=== PATIENT | female | born 2000 ===

== ENCOUNTER → 2021-03-19 08:39 | Outpatient (CLI) | payer OTHER, MEDICAID, SELFPAY ==
[2021-03-19 09:10] LABS: Ur Creatinine Normal (Normal); Ur Specific Gravity Normal (Normal); Urine pH Normal (Normal)
[2021-03-19 09:11] LABS: UR Morphine/Opiate cutoff 300 Negative (Negative); Urine Amphetamines Negative (Negative); Urine Barbiturates Negative (Negative); Urine Benzodiazepines Negative (Negative); Urine Cocaine Negative (Negative); Urine MDMA Negative (Negative); Urine Methadone Negative (Negative); Urine Methamphetamines Negative (Negative); Urine Oxycodone Negative (Negative); Urine Phencyclidine Negative (Negative); Urine Tetrahydrocannabinol Negative (Negative); Urine Tricyclic Antidepressant Negative (Negative)
== END ==
PROVIDERS: Visit Provider Family Medicine Sleep Medicine
DX: G47.00 Insomnia, unspecified (principal); G47.19 Other hypersomnia
CPT/HCPCS: 80305; 95805

== ENCOUNTER 2023-08-13 20:21 | Emergency (ER) | payer OTHER, SELFPAY ==
[2023-08-13 20:37] VITALS: BP 131/73; PULSE 85; RESP 20; TEMP 36.5; O2SAT 100
--- NOTE | 2023-08-13 20:48 | ED_ITS ---
HPI - General Adult General Chief complaint: Shortness of Breath/Dyspnea Stated complaint: rupert lan on 07/22 Time Seen by Provider: 08/13/23 20:38 Source: patient Mode of arrival: Ambulatory History of Present Illness HPI narrative: 23-year-old female. About 3 weeks ago patient underwent a laparoscopic cholecystectomy. Prior to that she underwent a laparoscopic ovarian cyst removal. During the 2 surgeries she also had 2 airplane rides. She is here for evaluation of shortness of breath that has been going on for the past couple days. No fevers. No chest pain. No cough. No sore throat. Her abdominal pain is actually improving. She is never had a blood clot in the past. No lower extremity swelling. She states she just feels like she can not take a deep breath. Related Data Home Medications Medication Instructions Recorded Confirmed dextroamphetamine-amphetamine 10 10 mg PO DAILY PRN 01/19/21 01/19/21 mg tablet (Adderall) fluoxetine 10 mg capsule 10 mg PO DAILY 01/19/21 01/19/21 norgestimate 0.18 mg/0.215 mg/0.25 1 tab PO DAILY 01/19/21 01/19/21 mg-ethinyl estradiol 25 mcg tablet ([id number]) Previous Rx's Medication Instructions Recorded armodafinil 150 mg tablet 150 mg PO QAM narcolepsy #30 tabs 12/14/21 Allergies Allergy/AdvReac Type Severity Reaction Status Date / Time No Known Drug Allergies Allergy Unverified 01/19/21 13:07 Review of Systems Constitutional Constitutional: Reports system reviewed and no additional complaints, except as documented ENT Ears, Nose, Mouth, and Throat: Reports system reviewed and no additional complaints, except as documented Cardiovascular Cardiovascular: Reports system reviewed and no additional complaints, except as documented Respiratory Respiratory: Reports system reviewed and no additional complaints, except as documented Integumentary/Breasts Skin/Breast: Reports system reviewed and no additional complaints, except as documented Hematologic/Lymphatic On Anticoagulants: No Patient History Family History Family/Other Loud snoring Obesity Hypertension Diabetes mellitus Dementia Father Loud snoring Sleep apnea Hypertension Diabetes mellitus ADD (attention deficit disorder) Mother Depression Anxiety ADD (attention deficit disorder) Family/Other Anxiety Depression Social History (Reviewed 11/04/23 @ 22:44 by CHARLES Pineda Smoking Status: Never smoker Smoking Status: Never smoker alcohol intake frequency: 0-2 drinks per day Substance Use Type: does not use Exam Initial Vital Signs Initial Vital Signs: Vital Signs Temperature 97.7 F 08/13/23 20:37 Pulse Rate 85 08/13/23 20:37 Respiratory Rate 20 08/13/23 20:37 Blood Pressure 131/73 08/13/23 20:37 Pulse Oximetry 100 08/13/23 20:37 Oxygen Delivery Method Room Air 08/13/23 20:37 Const General: cooperative and comfortable Resp Effort & Inspection: normal respiratory effort Auscultation: clear to auscultation bilaterally Cardio Rate: regular rate Rhythm: regular rhythm GI Inspection: normal to inspection and non-distended Skin General: no rashes or lesions noted Neuro General: patient alert, patient awake and moves all extremities Speech: speech normal Extrem General: capillary refill normal Scores PERC Score Age greater than or equal to 50 years: No Heart rate greater than or equal to 100 bpm: No Room Air O2 Sat less than 95%: No Unilateral leg swelling: No Recent trauma or surgery: Yes Hemoptysis: No Prior PE or DVT: No Hormone Use: Yes Total PERC Score: 2 Course Orders Ordered: ED Orders 08/13/23 20:49 XR chest 1V Stat EKG-12 Lead Stat 08/13/23 21:09 Complete Blood Count AUTO DIFF Stat Comprehensive Metabolic Panel Stat D Dimer Stat Lipase Stat Test Serum,Qual Stat 08/13/23 22:20 COVID19 -Nasal RAPID Stat Vital Signs Vital signs: Vital Signs - 8 hr 08/13/23 20:37 08/13/23 21:11 08/13/23 21:30 Temperature 97.7 F Pulse Rate 85 78 Respiratory Rate 20 20 Blood Pressure 131/73 111/69 Pulse Oximetry 100 100 Oxygen Delivery Method Room Air 08/13/23 21:30 08/13/23 22:00 08/13/23 22:00 Temperature Pulse Rate 80 85 Respiratory Rate 20 23 Blood Pressure 115/64 Pulse Oximetry 98 99 Oxygen Delivery Method Room Air Medical Decision Making Lab Data Lab results reviewed: Yes I reviewed the patient's lab results. 08/13/23 21:09 08/13/23 21:09 Labs: Lab Results 08/13/23 08/13/23 Range/Units 21:09 22:20 WBC 5.6 (4.5-11.0) X10^3/uL RBC 4.08 (4.0-5.2) X10^6/uL Hgb 12.6 (12.0-16.0) g/dL Hct 35.8 L (36-46) % MCV 87.8 (80-100) fL MCH 30.9 (26-34) PG MCHC 35.2 (30-36) % RDW 13.6 (11.6-14.8) % Plt Count 237 (150-400) X10^3/uL Neut % (Auto) 44.9 L (50-75) % Lymph % (Auto) 44.7 H (25-40) % Wilcox % (Auto) 6.3 (3-14) % Eos % (Auto) 3.2 (2-4) % Baso % (Auto) 0.9 (0-2) % Neut # (Auto) 2500 (5247-0792) /uL Lymph # (Auto) 2500 (3802-7822) /uL Wilcox # (Auto) 400 (0-900) /uL Eos # (Auto) 200 (0-450) /uL Baso # (Auto) 0 (0-100) /uL D-Dimer < 215 (<500) ng/ml Sodium 137 (137-145) mmol/L Potassium 3.7 (3.4-5.1) mmol/L Chloride 102 (98-107) mmol/L Carbon Dioxide 30 (22-32) mmol/L BUN 16 (7-17) mg/dL Creatinine 0.71 (0.52-1.04) mg/dL Estimated GFR > 60 (>60) mL/min BUN/Creatinine Ratio 22.5 H (6-22) Glucose 83 (70-100) mg/dL Calcium 9.5 (8.4-10.2) mg/dL Total Bilirubin 0.1 L (0.2-1.3) mg/dL AST 31 (14-36) IU/L ALT 44 H (<35) IU/L Alkaline Phosphatase 45 (38-126) U/L Total Protein 7.1 (6.3-8.2) g/dL Albumin 4.3 (3.5-5.0) g/dL Globulin 2.8 (1.7-4.1) g/dL Albumin/Globulin Ratio 1.5 (1.0-2.8) Lipase 428 H (23-300) U/L Serum , Qual Negative (Negative) SARS-CoV-2 (PCR) Negative (Negative) Imaging Data Chest x-ray: Radiologist's Impression: PROCEDURE: XR CHEST 1V INDICATIONS: sob s/p surgery TECHNIQUE: One view of the chest was acquired. COMPARISON: None. FINDINGS: Surgical changes and devices: None. Lungs and pleura: Lungs are clear. No pleural effusions or pneumothorax. Mediastinum: Mediastinal contours appear normal. Heart size is normal. Bones and chest wall: No suspicious bony lesions. Overlying soft tissues appear unremarkable. IMPRESSION: Normal for age, source of current shortness of breath symptoms is not seen. ECG Data Attestation: I personally reviewed and interpreted this ECG as follows: Interpretation: Sinus rhythm Ventricular rate is 79 Normal axis Normal QRS Normal QTC Nonspecific ST T wave changes MDM Narrative Medical decision making narrative: Patient has had a couple days of symptoms. No chest pain. EKGs unremarkable. PERC positive but D-dimer negative. Chest x-ray shows no signs of pneumonia. No lower extremity swelling. Patient is not hypoxic. COVID is negative. Not tachypneic. Unsure the exact etiology of the patient's symptoms but I do feel that we should hold on any CT scan for now given her blood work. No indication for antibiotics. Could be a viral illness that we did not test for today or related to her recent laparoscopic procedure. We did discuss strict return precautions. Discussed follow-up instructions. She expressed understanding and agreement. Discharge Plan Departure Patient Disposition: Home Clinical Impression: Shortness of breath Instructions: DI for Shortness of Breath Activity Restrictions/Additional Instructions: Recommend you continue to take all of your medications as directed. If you start to develop new symptoms to include chest pain, worsening shortness of breath, fevers or lower extremity swelling please return to the emergency department. Contact your primary doctor for a follow-up. Prescriptions: No Action armodafinil 150 mg tablet 150 mg PO QAM Qty: 30 0RF fluoxetine 10 mg capsule 10 mg PO DAILY norgestimate-ethinyl estradiol [Dqr-Pc-Ppqtow] 0.18/0.215/0.25 mg-25 mcg tablet 1 tab PO DAILY dextroamphetamine-amphetamine [Adderall] 10 mg tablet 10 mg PO DAILY PRN Referrals: Deborah Ross MD [Primary Care Provider] - Stand Alone Forms: Patient Portal/API
--- NOTE | 2023-08-13 20:49 | DI.RAD.S_ITS ---
PROCEDURE: XR CHEST 1V INDICATIONS: sob s/p surgery TECHNIQUE: One view of the chest was acquired. COMPARISON: None. FINDINGS: Surgical changes and devices: None. Lungs and pleura: Lungs are clear. No pleural effusions or pneumothorax. Mediastinum: Mediastinal contours appear normal. Heart size is normal. Bones and chest wall: No suspicious bony lesions. Overlying soft tissues appear unremarkable. IMPRESSION: Normal for age, source of current shortness of breath symptoms is not seen. Dictated by: Tom Ortiz M.D. on 08/13/2023 at 21:09 Approved by: Tom Ortiz M.D. on 08/13/2023 at 21:10
[2023-08-13 21:11] VITALS: PULSE 78; RESP 20; O2SAT 100
[2023-08-13 21:19] LABS: Add Manual Diff / Slide Review NO; Basophils Absolute Auto 0 /uL (0-100); Basophils Percent Auto 0.9 % (0-2); Eosinophils Absolute Auto 200 /uL (0-450); Eosinophils Percent Auto 3.2 % (2-4); Hematocrit 35.8 % (36-46); Hemoglobin 12.6 g/dL (12.0-16.0); Lymphocytes Absolute Auto 2500 /uL (1100-4500); Lymphocytes Percent Auto 44.7 % (25-40); Mean Corpuscular HGB Conc 35.2 % (30-36); Mean Corpuscular Hemoglobin 30.9 PG (26-34); Mean Corpuscular Volume 87.8 fL (80-100); Monocytes Absolute Auto 400 /uL (0-900); Monocytes Percent Auto 6.3 % (3-14); Neutrophils Absolute Auto 2500 /uL (1500-7000); Neutrophils Percent Auto 44.9 % (50-75); Platelet Count 237 X10^3/uL (150-400); Red Blood Cell Count 4.08 X10^6/uL (4.0-5.2); Red Cell Distribution Width 13.6 % (11.6-14.8); White Blood Cell Count 5.6 X10^3/uL (4.5-11.0)
[2023-08-13 21:30] VITALS: BP 111/69; PULSE 80; RESP 20; O2SAT 98
[2023-08-13 21:33] LABS: Alanine Aminotransferase 44 IU/L (<35); Albumin 4.3 g/dL (3.5-5.0); Albumin Globulin Ratio 1.5 (1.0-2.8); Alkaline Phosphatase 45 U/L (38-126); Aspartate Aminotransferase 31 IU/L (14-36); BUN Creatinine Ratio 22.5 (6-22); Bilirubin Total 0.1 mg/dL (0.2-1.3); Blood Urea Nitrogen 16 mg/dL (7-17); Calcium 9.5 mg/dL (8.4-10.2); Carbon Dioxide 30 mmol/L (22-32); Chloride 102 mmol/L (98-107); Estimated Glomerular Filt Rate > 60 mL/min (>60); Globulin 2.8 g/dL (1.7-4.1); Glucose 83 mg/dL (70-100); HEMOLYSIS < 15 (0-50); Lipase 428 U/L (23-300); Potassium 3.7 mmol/L (3.4-5.1); Sodium 137 mmol/L (137-145); Total Protein 7.1 g/dL (6.3-8.2)
[2023-08-13 21:40] LABS: D Dimer < 215 ng/ml (<500)
[2023-08-13 21:42] LABS: Pregnancy Test Serum,Qual Negative (Negative)
[2023-08-13 22:00] VITALS: BP 115/64; PULSE 85; RESP 23; O2SAT 99
[2023-08-13 22:38] LABS: COVID19 -Nasal RAPID Negative (Negative)
[2023-08-13 22:57] VITALS: BP 108/61; PULSE 79; RESP 18; O2SAT 97
== END 2023-08-13 22:59 | disposition home or self-care (01) ==
PROVIDERS: Emergency Provider Emergency Medicine; PCP Family Medicine
DX: R06.02 Shortness of breath (principal); R10.9 Unspecified abdominal pain; Z20.822 Contact with and (suspected) exposure to COVID-19
CPT/HCPCS: 36415; 71045; 80053; 83690; 84703; 85025; 85379; 87635; 93005; 99284; C9803